=== PATIENT | female | born 2000 | race Hispanic/Latino ===

== ENCOUNTER 2021-08-23 09:34 | Outpatient (CLI) | payer MEDICAID | END 2021-08-23 09:35 | disposition home or self-care (01) | LOC: CSHLAB 09:34 | PROVIDERS: ATTEND Family Medicine | DX: Z20.822 Contact with and (suspected) exposure to COVID-19 (principal) | CPT/HCPCS: U0003; U0005 ==

== ENCOUNTER 2021-08-26 18:00 | Inpatient (IN) | payer MEDICAID, OTHER ==
[2021-08-27] VITALS: BMI 40.5
[2021-08-27] MEDS ORDERED: hydrALAZINE 20 MG/ML VIAL SLOW IVP PRN (00:10)
[2021-08-27] MEDS ORDERED: Ondansetron PF 4 MG/2 ML Vial IVP PRN ×2 (00:10→20:36)
[2021-08-27] MEDS ORDERED: Promethazine HCl 25 MG/ML VIAL IM PRN ×2 (00:10→20:36)
[2021-08-27] MEDS ORDERED: Lidocaine 1% (PF) 30 ML VIAL SC PRN (00:15)
[2021-08-27 00:41] LABS: Hemoglobin 11.3 g/dL (12.0-15.5); Mean Corpuscular HGB CONC 33.4 g/dL (32.0-36.0); Mean Corpuscular Volume 83.9 fl (81.6-98.3); Mean Platelet Volume 12.1 fl (7.4-10.4); Platelet Count 212 10x3/uL (150-450); RBC Distribution Width 13.8 % (11.5-14.5); Red Blood Cell (RBC) Count 4.03 10x6/uL (3.90-5.03); White Blood Cell (WBC) Count 12.9 10x3/uL (3.5-10.5)
[2021-08-27] MEDS: Lactated Ringer's 1,000 ML IV SCH ×2 (01:08→08:48)
[2021-08-27 01:12] LABS: Syphilis Antibody Nonreactive (Nonreactive); Syphilis Antibody Index 0.05 S/CO (<1.00 Non-Reactive)
[2021-08-27 01:13] LABS: Hep B Surf Ag Non-Reactive S/CO (NonReactive)
[2021-08-27 01:20] LABS: HBSAg Index 0.15 S/CO (0-0.99)
[2021-08-27] MEDS: Misoprostol 100 MCG TAB VAG PRN ×2 (02:08→06:21)
[2021-08-27] MEDS ORDERED: Misoprostol 100 MCG TAB ONE (02:10)
[2021-08-27 02:24] LABS: ALT (SGPT) 10 U/L (8-55); AST (SGOT) 18 U/L (5-34); Albumin 3.2 g/dL (3.5-5.0); Alkaline Phosphatase 229 U/L (40-110); Anion Gap 16 mmol/L (10-20); BUN (Urea Nitrogen) 8 mg/dL (7.0-18.7); Bilirubin, Total 0.1 mg/dL (0.2-1.2); Calc. Creatinine Clearance 291 mL/min (70-130); Calcium 9.2 mg/dL (7.8-10.44); Carbon Dioxide 19 mmol/L (22-29); Chloride 108 mmol/L (98-107); Globulin 3.1 g/dL (2.4-3.5); Glucose 82 mg/dL (70-105); Potassium 3.6 mmol/L (3.5-5.1); Protein, Total 6.3 g/dL (6.0-8.3); Sodium 139 mmol/L (136-145)
[2021-08-27] MEDS ORDERED: Bupivacaine/Epinephrine 0.25% 30 ML VIAL ONE (08:00)
[2021-08-27] MEDS: NS w/ Oxytocin 30 units 500 ML IV SCH (10:39)
[2021-08-27] MEDS ORDERED: Butorphanol Tartrate 1 MG/ML VIAL SLOW IVP PRN (17:53)
[2021-08-27] MEDS ORDERED: NS w/ Oxytocin 30 units 500 ML IV SCH (18:00)
[2021-08-27] MEDS ORDERED: Fentanyl 2 mcg/Bup 0.1% Cadd 100 ML ONE (19:33)
[2021-08-27] MEDS ORDERED: Moisturizing Cream (Eucerin) 113 GM JAR TOP PRN (20:36)
[2021-08-27] MEDS ORDERED: Acetaminophen 325 MG TAB PO PRN (20:36)
[2021-08-27] MEDS ORDERED: Naloxone HCl 0.4 mg/ml Vial IVP PRN ×2 (20:36)
[2021-08-27] MEDS ORDERED: ePHEDrine Sulfate 50 MG/10 ML VIAL SLOW IVP PRN (20:36)
[2021-08-27] MEDS ORDERED: Lactated Ringer's 500 ML IV PRN (20:36)
[2021-08-27] MEDS ORDERED: diphenhydrAMINE 50 MG/ML VIAL IVP PRN (20:36)
[2021-08-27] MEDS ORDERED: Communication Order-Pharmacy FS SCH (20:45)
[2021-08-27] MEDS ORDERED: Fentanyl 2 mcg/Bupivacaine 0.1% Cassette 100 ML EPIDURAL SCH (20:45)
[2021-08-28] MEDS: NS w/ Oxytocin 30 units 500 ML IV SCH (01:40)
[2021-08-28] MEDS ORDERED: Benzocaine-Menthol 82.5 ML CAN TOP PRN (03:18)
[2021-08-28] MEDS ORDERED: Ondansetron PF 4 MG/2 ML Vial IVP PRN (03:18)
[2021-08-28] MEDS ORDERED: Lanolin Ointment 7 GM TUBE TOP PRN (03:18)
[2021-08-28] MEDS ORDERED: Milk Of Magnesia 30 ML UDCUP PO PRN (03:18)
[2021-08-28] MEDS ORDERED: NS w/ Oxytocin 30 units 500 ML IV SCH (03:18)
[2021-08-28] MEDS ORDERED: diphenhydrAMINE 25 MG CAP PO PRN (03:18)
[2021-08-28] MEDS ORDERED: Preparation H Ointment 28 GM TUBE PR PRN (03:18)
[2021-08-28] MEDS ORDERED: Misoprostol 200 MCG TAB VAG PRN (03:18)
[2021-08-28] MEDS ORDERED: Bisacodyl 10 MG SUPP PR PRN (03:18)
[2021-08-28] MEDS ORDERED: Boostrix 0.5 ML (Tdap) VIAL IM ONE (03:18)
[2021-08-28] MEDS ORDERED: hydrALAZINE 20 MG/ML VIAL SLOW IVP PRN (03:18)
[2021-08-28] MEDS: Ibuprofen 800 MG TAB PO SCH ×3 (03:34→20:06)
[2021-08-28] MEDS: Docusate 100 MG CAP PO SCH ×2 (08:06→20:06)
[2021-08-28] MEDS: Prenatal Vitamin 1 TAB PO SCH (08:06)
[2021-08-28] MEDS: Ferrous Sulfate 325 MG TAB PO SCH ×2 (08:28→16:11)
[2021-08-28] MEDS: Lactated Ringer's 1,000 ML IV SCH (14:34)
[2021-08-29] MEDS: Ibuprofen 800 MG TAB PO SCH ×2 (03:25→11:25)
[2021-08-29 08:39] VITALS: BP 137/61; TEMP 98.2
[2021-08-29] MEDS: Ferrous Sulfate 325 MG TAB PO SCH (08:59)
[2021-08-29] MEDS: Docusate 100 MG CAP PO SCH (09:00)
[2021-08-29] MEDS: Prenatal Vitamin 1 TAB PO SCH (09:01)
[2021-08-29] MEDS ORDERED: Measles/Mumps/Rubella 10 MCG/0.5 ML VIAL SC ONE (14:00)
== END 2021-08-29 17:45 | disposition home or self-care (01) | DRG 807 ==
LOC: UNDOADMIN 23:27 → CSHLD 23:27 → CSHPP 08-28 13:16
PROVIDERS: ADMIT Emergency Medicine; ATTEND Emergency Medicine
PROC: 3E0P7VZ Introduction of Hormone into Female Reproductive, Via Natural or Artificial Opening (ICD-10-PCS; 2021-08-27)
PROC: 3E033VJ Introduction of Other Hormone into Peripheral Vein, Percutaneous Approach (ICD-10-PCS; 2021-08-27)
PROC: 10907ZC Drainage of Amniotic Fluid, Therapeutic from Products of Conception, Via Natural or Artificial Opening (ICD-10-PCS; 2021-08-27)
PROC: 10H07YZ Insertion of Other Device into Products of Conception, Via Natural or Artificial Opening (ICD-10-PCS; 2021-08-27)
PROC: 10E0XZZ Delivery of Products of Conception, External Approach (ICD-10-PCS; principal; 2021-08-28)
PROC: 0KQM0ZZ Repair Perineum Muscle, Open Approach (ICD-10-PCS; 2021-08-28)
PROC: 0UQMXZZ Repair Vulva, External Approach (ICD-10-PCS; 2021-08-28)
DX: O10.92 Unspecified pre-existing hypertension complicating childbirth (principal); Z37.0 Single live birth; Z3A.39 39 weeks gestation of pregnancy; E66.9 Obesity, unspecified; O99.214 Obesity complicating childbirth; O99.284 Endocrine, nutritional and metabolic diseases complicating childbirth; E28.2 Polycystic ovarian syndrome; D64.9 Anemia, unspecified; O99.02 Anemia complicating childbirth; Z79.82 Long term (current) use of aspirin; Z79.899 Other long term (current) drug therapy; Z28.310 Unvaccinated for COVID-19; O70.1 Second degree perineal laceration during delivery; E88.81 Metabolic syndrome and other insulin resistance; O69.81X0 Labor and delivery complicated by cord around neck, without compression, not applicable or unspecified; O71.82 Other specified trauma to perineum and vulva
CPT/HCPCS: 36415; 51702; 80053; 82570; 84156; 85027; 86780; 86850; 86900; 86901; 87340; 90707; J2405; J2590; J7120